=== PATIENT | male | born 1985 | race American Indian/Alaskan Native ===

== ENCOUNTER 2018-01-24 01:10 | Emergency (ER) | payer OTHER ==
[2018-01-24 01:32] VITALS: TEMP 97.5
--- NOTE | 2018-01-24 01:45 | C.PDOC ---
History Of Present Illness 32 y/o male, smoker, c/o cough with greenish sputum, sts when he inhales through his nose, it smells like ammonia. pt sts he had subjective fever and bodyaches earlier in the week. no cp or sob. Time Seen by Provider: 01/24/18 01:26 Chief Complaint (Nursing): Cough, Cold, Congestion History/Exam Limitations: no limitations Onset/Duration Of Symptoms: Days Current Symptoms Are (Timing): Still Present Location Of Pain: Diffuse Myalgias Sick Contacts (Context): None Associated Symptoms: Cough, Sputum Ear Symptoms: Bilateral: None Severity: Mild Past Medical History Reviewed: Historical Data, Nursing Documentation, Vital Signs Vital Signs: Last Vital Signs Temp 97.5 F L 01/24/18 01:21 Pulse 100 H 01/24/18 01:21 Resp 20 01/24/18 01:21 BP 130/80 01/24/18 01:21 Pulse Ox 97 01/24/18 01:51 - Medical History PMH: No Chronic Diseases Family History: States: Unknown Family Hx - Social History Hx Tobacco Use: Yes Hx Alcohol Use: No Hx Substance Use: No - Immunization History Hx Tetanus Toxoid Vaccination: No Hx Influenza Vaccination: No Hx Pneumococcal Vaccination: No Review Of Systems Constitutional: Positive for: Fever Eyes: Negative for: Pain Cardiovascular: Negative for: Chest Pain Respiratory: Positive for: Cough, Shortness of Breath. Negative for: Wheezing Gastrointestinal: Negative for: Abdominal Pain Skin: Negative for: Rash Neurological: Negative for: Weakness, Numbness Physical Exam - Physical Exam Appears: Non-toxic, No Acute Distress Skin: Warm, Dry Head: Atraumatic, Normacephalic Nose: No Discharge Oral Mucosa: Moist Neck: Supple Cardiovascular: Rhythm Regular, No Murmur Respiratory: No Decreased Breath Sounds, No Rales, No Rhonchi, No Wheezing Gastrointestinal/Abdominal: Soft, No Tenderness Extremity: No Calf Tenderness, No Swelling Neurological/Psych: Oriented x3, Normal Speech, Normal Cognition, Normal Motor ED Course And Treatment O2 Sat by Pulse Oximetry: 97 Medical Decision Making Medical Decision Makin32 y/o male with cough green sputum and everything smells like ammonia. plan: xray, re-eval. 2478 am pt with neg cxr, d/c home. Disposition Counseled Patient/Family Regarding: Studies Performed, Diagnosis - Disposition Referrals: Non [facility] Provider, [Primary Care Provider] - [facility] [Outside] Disposition: HOME/ ROUTINE Disposition Time: 02:48 Condition: GOOD Additional Instructions: Drink increased fluids, avoid dairy for a few days. Follow up in medical clinic in a few days. Return to ER for any worse symptoms. Instructions: Upper Respiratory Infection (ED) Forms: [facility] (Citizen Of [place]), General Discharge Instructions, Work Excuse - Clinical Impression Clinical Impression: Upper respiratory infection
[2018-01-24 02:58] VITALS: BP 120/80; PULSE 80; RESP 14
--- NOTE | 2018-01-24 08:18 | RAD ---
HISTORY: cough green sputum COMPARISON: Pain TECHNIQUE: Chest PA and lateral FINDINGS: Examination limited by habitus. LUNGS: No focal consolidation. Please note that chest x-ray has limited sensitivity for the detection of pulmonary masses. PLEURA: No significant pleural effusion identified. No definite pneumothorax . CARDIOVASCULAR: The cardiomediastinal silhouette appears within normal limits of size. OSSEOUS STRUCTURES: No acute osseous abnormality identified. VISUALIZED UPPER ABDOMEN: Unremarkable. OTHER FINDINGS: None. IMPRESSION: No focal consolidation, significant pleural effusion, or definite pneumothorax identified.
[2018-01-25 14:09] VITALS: O2SAT 97
== END 2018-01-24 02:58 | disposition home or self-care (01) ==
LOC: SUPCPDRO 01:10 → C.ER 01:10
DX: J06.9 Acute upper respiratory infection, unspecified (principal); Z72.0 Tobacco use

== ENCOUNTER 2018-03-30 15:05 | Emergency (ER) | payer OTHER ==
[2018-03-30 15:22] VITALS: RESP 20
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
[2018-03-30 16:42] VITALS: BP 143/87; PULSE 65; TEMP 98.2
[2018-03-30 17:14] VITALS: O2SAT 97
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
== END 2018-03-30 16:45 | disposition home or self-care (01) ==
LOC: C.ER 15:05
DX: S63.91XA Sprain of unspecified part of right wrist and hand, initial encounter (principal); Y04.0XXA Assault by unarmed brawl or fight, initial encounter

== ENCOUNTER 2018-06-16 08:47 | Emergency (ER) | payer OTHER ==
[2018-06-16 09:00] VITALS: BP 138/82; PULSE 77; RESP 18; TEMP 98.4; O2SAT 97
--- NOTE | 2018-06-16 09:20 | C.PDOC ---
History Of Present Illness 33-year-old male, presents to the emergency department with complaints of rectal bleeding with bowel movement for the past week. Patient denies any abdominal pain, nausea/vomiting, or any other associated symptoms. No other complaints at this time. Time Seen by Provider: 06/16/18 09:06 Chief Complaint (Nursing): GI Problem History Per: Patient History/Exam Limitations: no limitations Onset/Duration Of Symptoms: Days Current Symptoms Are (Timing): Still Present Past Medical History Reviewed: Historical Data, Nursing Documentation, Vital Signs Vital Signs: Last Vital Signs Temp 98.4 F 06/16/18 08:57 Pulse 77 06/16/18 08:57 Resp 18 06/16/18 08:57 BP 138/82 06/16/18 08:57 Pulse Ox 97 06/16/18 09:20 Family History: States: No Known Family Hx - Social History Hx Tobacco Use: Yes Hx Alcohol Use: No Hx Substance Use: No - Immunization History Hx Tetanus Toxoid Vaccination: No Hx Influenza Vaccination: No Hx Pneumococcal Vaccination: No Review Of Systems Constitutional: Negative for: Fever, Chills Cardiovascular: Negative for: Chest Pain Respiratory: Negative for: Shortness of Breath Gastrointestinal: Positive for: Hematochezia. Negative for: Nausea, Vomiting, Abdominal Pain, Diarrhea Musculoskeletal: Negative for: Back Pain Neurological: Negative for: Weakness Physical Exam - Physical Exam Appears: Non-toxic, No Acute Distress Skin: Normal Color, Warm, Dry, No Rash Head: Atraumatic, Normacephalic Eye(s): bilateral: Normal Inspection Nose: Normal Oral Mucosa: Moist Lips: Normal Appearing Neck: Normal ROM Chest: Symmetrical Cardiovascular: Rhythm Regular, No Murmur Respiratory: Normal Breath Sounds, No Decreased Breath Sounds Gastrointestinal/Abdominal: Soft, No Tenderness, No Guarding, No Rebound Rectal: Hemorrhoids (1) Extremity: Normal ROM, No Deformity, No Swelling Neurological/Psych: Oriented x3, Normal Speech ED Course And Treatment O2 Sat by Pulse Oximetry: 97 Disposition Counseled Patient/Family Regarding: Diagnosis, Need For Followup, Rx Given - Disposition Referrals: [facility] at [facility] [Outside] Disposition: HOME/ ROUTINE Disposition Time: 09:18 Condition: STABLE Prescriptions: Hard Fat/Phenylephrine [place] [Anusol Suppository] 1 sup RC HS #10 sup Instructions: Hemorrhoids (DC) Forms: [employer] (American) - Clinical Impression Clinical Impression: BRBPR (bright red blood per rectum), Acute hemorrhoid - Scribe Statement The provider has reviewed the documentation as recorded by the Scribe (Katlyn Stevens) Provider Attestation: All medical record entries made by the Scribe were at my direction and personally dictated by me. I have reviewed the chart and agree that the record accurately reflects my personal performance of the history, physical exam, medical decision making, and the department course for this patient. I have also personally directed, reviewed, and agree with the discharge instructions and disposition.
== END 2018-06-16 09:25 | disposition home or self-care (01) ==
LOC: C.ER 08:47
DX: K62.5 Hemorrhage of anus and rectum (principal); K64.9 Unspecified hemorrhoids

== ENCOUNTER 2019-01-18 21:04 | Emergency (ER) | payer OTHER ==
[2019-01-18 21:23] VITALS: BP 133/83; PULSE 77; RESP 17; TEMP 97.6; O2SAT 98
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
== END 2019-01-18 21:52 | disposition home or self-care (01) ==
LOC: C.ER 21:04
DX: R51 Headache (principal); S09.90XA Unspecified injury of head, initial encounter; W22.8XXA Striking against or struck by other objects, initial encounter